=== PATIENT | female | born 1985 | race Hispanic/Latino ===

== ENCOUNTER 2016-08-04 11:56 | Emergency (ER) | payer OTHER ==
[~2016-08-04] VITALS: Ht 147.3 cm; Wt 65.9 kg
[~2016-08-04 11:56] MED LIST: DOCU-41 PO; EPIN0.3P2 IJ; FERR-74 PO; IBUP800T28 PO; NADO80TA PO; OXYC1TAB24 PO; PREN-148 PO
[2016-08-04 12:01] VITALS: BP 105/62; PULSE 74; RESP 20; O2SAT 98
[2016-08-04 13:09] LABS: BASOPHILS % (AUTO) 0.2 % (0-3); EOSINOPHILS % (AUTO) 0 % (0-5); MONOCYTES % (AUTO) 8.5 % (4-12); Mean Corpuscular Hemoglobin 30.4 pg (27.0-35.0); Mean Corpuscular Volume 95.2 fL (81-100); Platelet Count 273 bil/L (150-400)
--- NOTE | 2016-08-04 13:24 | ED.REPORT ---
HPI-Abd Pain F Under 39 Date of Service Aug 04, 2016 ED Provider: Jazmin Giles History of Present Illness: epigastric pain since last night. has been ongoing for a while. scheduled to work today in [employer], does different things every day. did not go to work. 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 yund is primary care, missed ultrasound appointment, nausea with the pain Nursing Notes Stated Complaint: ABDOMINAL PAIN Chief Complaint: Female Abdominal Pain Nursing Notes Reviewed: Yes Allergies: Coded Allergies: metoclopramide HCl (Verified Allergy, Severe, ANXIETY, ITCHING, SOB, ) Informed of reaction after med had been given today. Pt. anxious when she came, remains anxious, not noticably worse at this time. Offered phenergan, which she refused. iodine (Verified Allergy, Mild, RASH, 04/02/16) SINGLE EPISODE OF RASH WITH IV CONTRAST Uncoded Allergies: STERIOIDS (Allergy, Intermediate, Anxiety, 02/04/15) Scheduled Docusate Sodium (Colace) 100 Mg Capsule 100 MG PO BID Ferrous Sulfate (Feosol) 325 Mg Tablet 325 MG PO BIDWM Nadolol (Nadolol) 80 Mg Tablet 80 MG PO DAILY Vit No.124/Iron/FA ( Vitamin Tablet) 27 Mg Iron-800 Mcg Tablet 1 EACH PO DAILY Scheduled PRN Epinephrine (Epipen 2-Joshua) 0.3 Mg/0.3 Ml Auto.injct 0.3 MG IJ DIRECTED PRN PRN For Anaphyllaxis Ibuprofen (Ibuprofen) 800 Mg Tablet 800 MG PO Q6H PRN PRN For Pain oxyCODONE-Acetaminophen 5-325 mg (oxyCODONE-Acetaminophen 5-325 mg) 1 Each Tablet 1 TAB PO Q4H PRN PRN For Pain General Time Seen by MD: 13:21 Chief Complaint Abdominal pain Hx Obtained From: Patient Sudden in Onset?: No Past Medical History Past Medical History Notes: Six pregnancies last CT and U/S 12/2014 A1 Blood type O+ No history of ectopic or STI. Past Medical History migraines Chronic Abdominal Pain - unclear etiology H/O H. Pylori PE Asthma Past Surgical History EGD neg 11/2012 Reports: Appendectomy, Cholecystectomy Family History Non-contributory Smoking History Never Smoker Social History Alcohol Use: Denies alcohol use Drug Use: Denies drug use Other Social History: Lives with children, Local resident Occupation single mom, has family help 08/04/2016 Ambulatory Status Independent Review of Systems Basic Review of Systems Eyes: Vision NL, No discharge ENT: Hearing NL, No pain, No nasal congestion, No pharyngeal pain Hematologic: No bleeding, No bruising Endocrine: No cold intolerance, No heat intolerance, No weight gain, No weight loss Skin: No bruising, No rash, No itch Allergy / Immune: No allergy Neurologic: NL mental status, No weakness, No numbness Psychiatric: Normal thought content Physical Exam Initial Vital Signs Vital Signs (First) Date Time Temp Pulse Resp B/P Pulse Ox O2 Delivery O2 Flow Rate FiO2 08/04/16 12:01 36.4 74 20 105/62 98 Room Air Initial VS: Reviewed, Vital signs normal Head / Eyes: Atraumatic, Normocephalic, PERRL ENT: Mucous membranes moist, Conjunctiva normal, No scleral icterus Neck: Supple, Non-tender, Full range of motion Lymphatic: No lymphadenopathy Extremities: Vascular intact, Neuro intact, No swelling, No tenderness Skin: Warm, Dry, No cyanosis Neurologic: Alert, Oriented, Nonfocal Psychiatric: Mood/affect normal, Behavior normal, Normal thought content General/Constitutional: Awake, Alert, No acute distress, Well appearing, Well developed, Well hydrated Respiratory / Chest: Atraumatic, Breath sounds NL, Breath sounds = bilat, No respiratory distress Cardiovascular: Heart rate NL, Regular rhythm, Heart sounds NL, No gallop Abdomen: Atraumatic, Soft, Non-tender, McBurney's non-tender, No guarding, No rebound, BS normoactive Back: Atraumatic, Inspection NL, Full range of motion, Painless range of motion Interpretation & Diagnostics Lab Results Interpretation Result Diagram: 08/04/16 1235 08/04/16 1235 Test 08/04/16 12:35 08/04/16 13:40 White Blood Count 5.3th/mm3 (3.8-10.1) Red Blood Count 3.75mil/mm3 (3.90-5.20) Hemoglobin 11.4g/dL (12.0-15.6) Hematocrit 35.7% (35.0-46.0) Mean Corpuscular Volume 95.2fL (81-100) Mean Corpuscular Hemoglobin 30.4pg (27.0-35.0) Mean Corpuscular Hemoglobin Concent 31.9% (32.0-37.0) Red Cell Distribution Width 13.8% (12.3-15.4) Platelet Count 273bil/L (150-400) Neutrophils (%) (Auto) 52.0% (40-74) Lymphocytes (%) (Auto) 39.1% (14-46) Monocytes (%) (Auto) 8.5% (4-12) Eosinophils (%) (Auto) 0% (0-5) Basophils (%) (Auto) 0.2% (0-3) Sodium Level 139mEq/L (134-144) Potassium Level 4.2mEq/L (3.5-5.2) Chloride Level 106mEq/L (97-108) Carbon Dioxide Level 22mmol/L (18-29) Blood Urea Nitrogen 18mg/dL (6-20) Creatinine 0.73mg/dL (0.57-1.00) Estimat Glomerular Filtration Rate 132mL/min (>59) Glucose Level 73mg/dL (60-99) Calcium Level 8.4mg/dL (8.5-10.1) Magnesium Level 1.8mg/dL (1.6-2.6) Total Bilirubin 0.2mg/dL (0.0-1.2) Aspartate Amino Transf (AST/SGOT) 18U/L (0-50) Alanine Aminotransferase (ALT/SGPT) 23U/L (0-32) Alkaline Phosphatase 53U/L (25-150) Total Protein 7.4g/dL (6.4-8.4) Albumin 3.9g/dL (3.4-5.0) Lipase 33U/L (13-60) Hold [place] Top Tube Received (Received) Urine Color Yellow (YELLOW) Urine Appearance Hazy (CLEAR,HAZY) Urine pH 5.5 (5.0-8.0) Urine Specific [place] 1.025 (1.003-1.035) Urine Protein Negativemg/dL (NEG,TRACE) Urine Glucose (UA) Negativemg/dL (NEGATIVE) Urine Ketones Negativemg/dL (NEGATIVE) Urine Occult Blood Negative (NEGATIVE) Urine Nitrite Negative (NEGATIVE) Urine Bilirubin Negative (NEGATIVE) Urine Urobilinogen Normalmg/dL (NORMAL) Urine Leukocyte Esterase Negative (NEGATIVE) Urine RBC 0-2/hpf (0-2) Urine WBC 0-5/hpf (0-5) Urine Epithelial Cells None/hpf (NONE-MOD) Urine Crystals None seen (NONE SEEN) Urine Bacteria Few/hpf (NONE-FEW) Urine Hyaline Casts None/lpf (NONE) Urine Granular Casts None seen (NONE SEEN) Urine Waxy Casts None seen (NONE SEEN) Urine Red Blood Cell Casts None seen (NONE SEEN) Urine White Blood Cell Casts None seen (NONE SEEN) Urine Mucus Present (None Seen) Urine Trichomonas None seen (NONE SEEN) Urine Yeast None (NONE SEEN) Urinalysis Comment None Urine Culture Reflexed Not indicated Hold Urine Received (Received) US Focused Biliary Liver: Liver is normal in size and homogeneous in echotexture. Gallbladder: Surgically absent. Biliary ducts: Intrahepatic bile ducts are non-dilated. Extrahepatic bile duct caliber measures 7 mm. Normal is 6-7 mm or less in diameter, or 10 mm or less post-cholecystectomy. Pancreas: Visualized portions of the pancreas are sonographically normal. Spleen: Spleen is normal in size and homogeneous in echotexture. Kidneys: Kidneys are normal in size and echotexture. Right kidney measures 10.1 cm long; left kidney measures 10.1 cm long. No hydronephrosis or nephrolithiasis. No solid masses. Aorta: Visualized aorta is normal in caliber at less than 3 cm. Iliacs: Proximal common iliac arteries are normal in caliber at less than 2.5 cm. IVC: Intrahepatic inferior vena cava is patent. Miscellaneous: No free abdominal fluid. IMPRESSION: No sonographic explanation for abdominal pain, status post remote cholecystectomy. Dictated by: Adryan Diane M.D. on 08/04/2016 at 14:46 Discharge & Departure Primary Impression: Abdominal pain Abdominal location: left upper quadrant Qualified Code: R10.12 - Left upper quadrant pain Disposition: Home Patient Instructions: Acute Abdominal Pain (ED) Additional Instructions: Your labs are looking good. The ultrasound does not identify any abnormalities. Your gall bladder has been removed about 15 years ago. With the history of the pain waking you around 2 or 3 in the morning it may be a ulcer. Start omeprazole daily also carafate 4 times a day. You will need a follow up with primary care to see if these medications are working. Can also use hydrocodone 1 at night for severe unrelenting pain. Referrals: Joaquim Flores MD (PCP/Family) EDSupervising Provider for APC: Niko Basilio DO copies to: Joaquim Flores MD, Sue ARNP Aug 04, 2016 13:24
[2016-08-04] MEDS ORDERED: Ketorolac 30 mg/mL 2 mL Inj IM ONE (13:35)
[2016-08-04 13:39] LABS: Magnesium 1.8 mg/dL (1.6-2.6)
[2016-08-04 14:36] LABS: APPEARANCE,URINE HAZY (CLEAR,HAZY); COLOR,URINE YELLOW (YELLOW); OCCULT BLOOD,URINE NEGATIVE (NEGATIVE); PH,URINE 5.5 (5.0-8.0); UROBILINOGEN,URINE NORMAL (NORMAL)
--- NOTE | 2016-08-04 14:47 | DRSVH ---
PROCEDURE: US ABDOMEN ([id number]) INDICATIONS: 31 year-old female with epigastric abdominal pain. TECHNIQUE: Real-time scanning was performed of the abdominal and retroperitoneal organs, with image documentatio n. COMPARISON: [facility], CT, CT ABD PELVIS WO CON, 04/02/2016, 18:32. [facility] joy, US, ABDOMEN SONOGRAM, 12/01/2014, 18:55. FINDINGS: Liver: Liver is normal in size and homogeneous in echotexture. Gallbladder: Surgically absent. Biliary ducts: Intrahepatic bile ducts are non-dilated. Extrahepatic bile duct caliber measures 7 m m. Normal is 6-7 mm or less in diameter, or 10 mm or less post-cholecystectomy. Pancreas: Visualized portions of the pancreas are sonographically normal. Spleen: Spleen is normal in size and homogeneous in echotexture. Kidneys: Kidneys are normal in size and echotexture. Right kidney measures 10.1 cm long; left kidne y measures 10.1 cm long. No hydronephrosis or nephrolithiasis. No solid masses. Aorta: Visualized aorta is normal in caliber at less than 3 cm. Iliacs: Proximal common iliac arteries are normal in caliber at less than 2.5 cm. IVC: Intrahepatic inferior vena cava is patent. Miscellaneous: No free abdominal fluid. IMPRESSION: No sonographic explanation for abdominal pain, status post remote cholecystectomy. Dictated by: Adryan Diane M.D. on 08/04/2016 at 14:46 Approved by: Adryan Diane M.D. on 08/04/2016 at 14:46
== END 2016-08-04 14:39 | disposition home or self-care (01) ==
LOC: SED 11:56
DX: R10.12 Left upper quadrant pain (principal); Z88.8 Allergy status to other drugs, medicaments and biological substances
CPT/HCPCS: 76700; 80053; 81000; 81025; 83690; 83735; 85025; 96372; 99285; J1885

== ENCOUNTER 2016-08-06 03:59 | Emergency (ER) | payer OTHER ==
[~2016-08-06] VITALS: Ht 147.3 cm; Wt 61.4 kg
[2016-08-06 04:07] VITALS: BP 107/62; PULSE 105; RESP 22; O2SAT 98
--- NOTE | 2016-08-06 04:11 | ED.REPORT ---
HPI-Abd Pain F Under 40 Date of Service Aug 06, 2016 ED Provider: Dr. Cesario Mcduffie M.D. A 31 year old female with a history of PE, chronic abdominal pain, kidney stones , and asthma presents to the ED with abdominal pain onset three days ago. The patient also reports fever and nausea. She denies vomiting, diarrhea, or constipation. The patient was in the ED two days ago (08/04/16) with similar symptoms. Nursing Notes Stated Complaint: ABDOMINAL PAIN & FEVER Chief Complaint: Female Abdominal Pain Nursing Notes Reviewed: Yes Allergies: Coded Allergies: metoclopramide HCl (Verified Allergy, Severe, ANXIETY, ITCHING, SOB, ) Informed of reaction after med had been given today. Pt. anxious when she came, remains anxious, not noticably worse at this time. Offered phenergan, which she refused. iodine (Verified Allergy, Mild, RASH, 04/02/16) SINGLE EPISODE OF RASH WITH IV CONTRAST Uncoded Allergies: STERIOIDS (Allergy, Intermediate, Anxiety, 02/04/15) Scheduled Docusate Sodium (Colace) 100 Mg Capsule 100 MG PO BID Ferrous Sulfate (Feosol) 325 Mg Tablet 325 MG PO BIDWM Nadolol (Nadolol) 80 Mg Tablet 80 MG PO DAILY Omeprazole (Omeprazole) 20 Mg Tablet.dr 20 MG PO BID Vit No.124/Iron/FA ( Vitamin Tablet) 27 Mg Iron-800 Mcg Tablet 1 EACH PO DAILY Scheduled PRN Epinephrine (Epipen 2-Joshua) 0.3 Mg/0.3 Ml Auto.injct 0.3 MG IJ DIRECTED PRN PRN For Anaphyllaxis Ibuprofen (Ibuprofen) 800 Mg Tablet 800 MG PO Q6H PRN PRN For Pain oxyCODONE-Acetaminophen 5-325 mg (oxyCODONE-Acetaminophen 5-325 mg) 1 Each Tablet 1 TAB PO Q4H PRN PRN For Pain General Time Seen by MD: 04:10 Chief Complaint Abdominal pain Hx Obtained From: Patient Arrived By: Walk-in Sudden in Onset?: No Onset Occurred: 3 days ago Symptom Duration: Since onset Location: : Diffuse Quality: Painful Severity: Current: Moderate Severity: Maximum: Moderate Associated with: Reports: Fever, Nausea, Denies: Diarrhea, Vomiting Pertinent Negative: Relieved by nothing Context Related History: Reports: Abdominal surgery Recent Healthcare: Recent doctor visit, Prior workup Similar Sx Previous: Yes Past Medical History Past Medical History Notes: Six pregnancies last CT and U/S 12/2014 A1 Blood type O+ No history of ectopic or STI. Past Medical History migraines Chronic Abdominal Pain - unclear etiology H/O H. 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 Physical Exam Initial Vital Signs Vital Signs (First) Date Time Temp Pulse Resp B/P Pulse Ox O2 Delivery O2 Flow Rate FiO2 08/06/16 04:07 37.7 105 22 107/62 98 Room Air Initial VS: Reviewed Head / Eyes: Atraumatic, Normocephalic ENT: Conjunctiva normal, No scleral icterus Neck: Supple, Full range of motion Skin: Warm, Dry, No cyanosis Neurologic: Alert, Oriented, Nonfocal Psychiatric: Mood/affect normal, Behavior normal, Normal thought content General/Constitutional: Awake, Alert Appearance / Presentation: Positive: Uncomfortable Respiratory / Chest: Breath sounds NL, Breath sounds = bilat, No respiratory distress Cardiovascular: Heart rate NL, Regular rhythm, Heart sounds NL Abdomen: Soft Tenderness/Guarding/Rebound: Positive: Tender epigastric Interpretation & Diagnostics Lab Results Interpretation Result Diagram: 08/06/16 0420 08/06/16 0420 Test 08/06/16 04:20 08/06/16 05:30 White Blood Count 9.0th/mm3 (3.8-10.1) Red Blood Count 4.02mil/mm3 (3.90-5.20) Hemoglobin 12.3g/dL (12.0-15.6) Hematocrit 37.8% (35.0-46.0) Mean Corpuscular Volume 94.0fL (81-100) Mean Corpuscular Hemoglobin 30.6pg (27.0-35.0) Mean Corpuscular Hemoglobin Concent 32.5% (32.0-37.0) Red Cell Distribution Width 13.9% (12.3-15.4) Platelet Count 249bil/L (150-400) Neutrophils (%) (Auto) 80.7% (40-74) Lymphocytes (%) (Auto) 5.9% (14-46) Monocytes (%) (Auto) 13.1% (4-12) Eosinophils (%) (Auto) 0% (0-5) Basophils (%) (Auto) 0.1% (0-3) Hold Purple Top Tube Received (Received) Prothrombin Time 10.0sec (8.1-12.5) Prothromb Time International Ratio 0.94ratio Hold Blue Top Tube Received (Received) Urine Color Straw (YELLOW) Urine Appearance Clear (CLEAR,HAZY) Urine pH 6.0 (5.0-8.0) Urine Specific [place] 1.025 (1.003-1.035) Urine Protein Negativemg/dL (NEG,TRACE) Urine Glucose (UA) Negativemg/dL (NEGATIVE) Urine Ketones Negativemg/dL (NEGATIVE) Urine Occult Blood Negative (NEGATIVE) Urine Nitrite Negative (NEGATIVE) Urine Bilirubin Negative (NEGATIVE) Urine Urobilinogen Normalmg/dL (NORMAL) Urine Leukocyte Esterase Negative (NEGATIVE) Urine RBC 0-2/hpf (0-2) Urine WBC 0-5/hpf (0-5) Urine Epithelial Cells Occasional/hpf (NONE-MOD) Urine Crystals None seen (NONE SEEN) Urine Bacteria None/hpf (NONE-FEW) Urine Hyaline Casts None/lpf (NONE) Urine Granular Casts None seen (NONE SEEN) Urine Waxy Casts None seen (NONE SEEN) Urine Red Blood Cell Casts None seen (NONE SEEN) Urine White Blood Cell Casts None seen (NONE SEEN) Urine Mucus Present (None Seen) Urine Trichomonas None seen (NONE SEEN) Urine Yeast None (NONE SEEN) Urine Culture Reflexed Not indicated Hold Urine Received (Received) Sodium Level 140mEq/L (134-144) Potassium Level 3.7mEq/L (3.5-5.2) Chloride Level 102mEq/L (97-108) Carbon Dioxide Level 24mmol/L (18-29) Blood Urea Nitrogen 15mg/dL (6-20) Creatinine 0.61mg/dL (0.57-1.00) Estimat Glomerular Filtration Rate 163mL/min (>59) Glucose Level 95mg/dL (60-99) Calcium Level 9.1mg/dL (8.5-10.1) Magnesium Level 1.8mg/dL (1.6-2.6) Total Bilirubin 0.2mg/dL (0.0-1.2) Aspartate Amino Transf (AST/SGOT) 19U/L (0-50) Alanine Aminotransferase (ALT/SGPT) 19U/L (0-32) Alkaline Phosphatase 60U/L (25-150) Total Protein 8.3g/dL (6.4-8.4) Albumin 4.4g/dL (3.4-5.0) Lipase 33U/L (13-60) Hold [place] Top Tube Received (Received) Lactic Acid Level 1.2mmol/L (0.4-2.0) Re-Eval/Medical Decision Med Decision/Clinical Course Med Decision/Clinical Course: 31-year-old presents again with epigastric pain radiating through her back. Just had an ultrasound but is postcholecystectomy in any case. Improved here with Maalox and Viscous Xylocaine. Omeprazole previously prescribed now doubled to twice daily. Ten pack of Vicodin given with no renewal. Follow-up with PCP. Source of Hx: Old records Re-Evaluation/Progress : Time of Eval: 06:03 Patient Status: Condition improved Re-Evaluation/Progress Note: Discussed with patient lab results, diagnosis, and plan for discharge. Follow-up and return to the ER instructions given. Patient agrees with plan for care and all questions were addressed. Counseled Regarding: Diagnosis, Lab results, Need for follow-up, When/why to return to ED Discharge & Departure Primary Impression: Abdominal Pain, Epigastric Additional Impression: Gastritis Disposition: Home Discharge Condition All VS Reviewed: Yes Condition: Stable Patient Instructions: Gastritis (ED) Additional Instructions: Use Maalox as needed for acute episodes. Double up your omeprazole to 20 mg twice daily.\ Avoid acid caffeine alcohol and spicy foods. Vicodin sparingly at night for pain. These cannot be renewed through the emergency department and can only be renewed by her primary care doctor, if appropriate. Return if you seen any blood in her stool, black stool, vomit any significant amount of blood, or have any new symptoms of concern. Referrals: Joaquim Flores MD (PCP/Family) [facility] Attestation Portions of this note were transcribed by Saima José. I, Dr. Mcduffie, personally performed the history, physical exam, and medical decision-making; I reviewed and confirmed the accuracy of the information in the transcribed note. Signed by: Tracy Garcia, 08/06/2016, 06:14 copies to: Joaquim Flores MD, Christopher W MD Aug 06, 2016 04:11 SAIMA JOSÉ Aug 06, 2016 04:18
[2016-08-06] MEDS ORDERED: 0.9% Sodium Chloride 1,000 ML IV ONE (05:04)
[2016-08-06] MEDS ORDERED: Ondansetron 2 mg/mL 2 mL Inj IVPUSH ONE (05:05)
[2016-08-06] MEDS ORDERED: Pantoprazole 4 mg/mL 10 mL Inj IVPUSH ONE (05:05)
[2016-08-06] MEDS: HYDROmorphone 0.5 mg/0.5 mL iSecure Syringe IVPUSH PRN ×2 (05:13→05:36)
[2016-08-06 05:14] LABS: BASOPHILS % (AUTO) 0.1 % (0-3); EOSINOPHILS % (AUTO) 0 % (0-5); MONOCYTES % (AUTO) 13.1 % (4-12); Mean Corpuscular Hemoglobin 30.6 pg (27.0-35.0); NEUTROPHILS % (AUTO) 80.7 % (40-74); Platelet Count 249 bil/L (150-400)
[2016-08-06 05:21] LABS: INR 0.94 ratio
[2016-08-06 05:25] LABS: Magnesium 1.8 mg/dL (1.6-2.6)
[2016-08-06 05:29] LABS: APPEARANCE,URINE CLEAR (CLEAR,HAZY); COLOR,URINE STRAW (YELLOW); OCCULT BLOOD,URINE NEGATIVE (NEGATIVE); UROBILINOGEN,URINE NORMAL (NORMAL)
[2016-08-06] MEDS ORDERED: Alum-Mag Hydrox-Simeth 30 mL Suspension PO ONE (06:10)
[2016-08-06] MEDS ORDERED: _HYDROcodone/APAP 5-325 mg Tablet PO PRN (06:10)
[2016-08-06] MEDS ORDERED: OMEP20TA86 PO (06:11)
[2016-08-06 06:28] VITALS: BP 99/62; PULSE 107; RESP 16; O2SAT 97
== END 2016-08-06 06:29 | disposition home or self-care (01) ==
LOC: SED 03:59
DX: R10.13 Epigastric pain (principal); K29.70 Gastritis, unspecified, without bleeding; R50.9 Fever, unspecified; R11.0 Nausea; J45.909 Unspecified asthma, uncomplicated; Z86.711 Personal history of pulmonary embolism; Z88.8 Allergy status to other drugs, medicaments and biological substances
CPT/HCPCS: 36415; 80053; 81000; 81025; 83605; 83690; 83735; 85025; 85610; 96361; 96374; 96375; 99285; J1170; J2405; J7030

== ENCOUNTER 2017-02-11 17:25 | Emergency (ER) | payer OTHER ==
[~2017-02-11] VITALS: Ht 147.3 cm; Wt 63.6 kg
[~2017-02-11 17:25] MED LIST changes: +OMEP20TA86 PO
[2017-02-11 17:47] VITALS: BP 120/81; PULSE 71; RESP 16; O2SAT 100
--- NOTE | 2017-02-11 18:06 | ED.REPORT ---
HPI-Trauma Minor / Fall Date of Service Feb 11, 2017 ED Provider: Manny Whitmore MD Pt is a generally healthy 32 y/o female presenting to the ED due to head injury which occurred today. 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 She c/o associated headache, neck pain, nausea, ear pain. She denies change in LOC, vomiting, abdominal pain, chest pain , extremity pain. She has a history of tubal ligation. Nursing Notes Stated Complaint: FELL AT WORK, HURT MY HEAD Chief Complaint: Head, Face, Neck Trauma Nursing Notes Reviewed: Yes Allergies: Coded Allergies: metoclopramide HCl (Verified Allergy, Severe, ANXIETY, ITCHING, SOB, ) Informed of reaction after med had been given today. Pt. anxious when she came, remains anxious, not noticably worse at this time. Offered phenergan, which she refused. iodine (Verified Allergy, Mild, RASH, 02/11/17) SINGLE EPISODE OF RASH WITH IV CONTRAST Uncoded Allergies: STERIOIDS (Allergy, Intermediate, Anxiety, 02/04/15) Scheduled Docusate Sodium (Colace) 100 Mg Capsule 100 MG PO BID Ferrous Sulfate (Feosol) 325 Mg Tablet 325 MG PO BIDWM Nadolol (Nadolol) 80 Mg Tablet 80 MG PO DAILY Omeprazole (Omeprazole) 20 Mg Tablet.dr 20 MG PO BID Vit No.124/Iron/FA ( Vitamin Tablet) 27 Mg Iron-800 Mcg Tablet 1 EACH PO DAILY Scheduled PRN Epinephrine (Epipen 2-Joshua) 0.3 Mg/0.3 Ml Auto.injct 0.3 MG IJ DIRECTED PRN PRN For Anaphyllaxis Ibuprofen (Ibuprofen) 800 Mg Tablet 800 MG PO Q6H PRN PRN For Pain oxyCODONE-Acetaminophen 5-325 mg (oxyCODONE-Acetaminophen 5-325 mg) 1 Each Tablet 1 TAB PO Q4H PRN PRN For Pain General Time Seen by MD: 17:55 Chief Complaint Head injury Hx Obtained From: Patient Arrived By: Walk-in Onset Occurred: 1 - 4 hours ago Symptom Duration: Since onset Location: Head Quality: Aching Severity: Current: Moderate Severity: Maximum: Moderate Similar Sx Previous: No Past Medical History Past Medical History Notes: Six pregnancies last CT and U/S 12/2014 A1 Blood type O+ No history of ectopic or STI. Past Medical History migraines Chronic Abdominal Pain - unclear etiology H/O H. 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 Physical Exam Initial Vital Signs Vital Signs (First) Date Time Temp Pulse Resp B/P Pulse Ox O2 Delivery O2 Flow Rate FiO2 02/11/17 17:47 36.6 71 16 120/81 100 Room Air Initial VS: Reviewed, Vital signs normal ENT: Mucous membranes moist, Conjunctiva normal, No scleral icterus Respiratory: Breath sounds normal, Clear to auscultation, No respiratory distress Cardiovascular: Regular rate & rhythm, Heart sounds normal, Intact distal pulses Abdomen / GI: Soft, Non-tender, No distention Extremities: Vascular intact, Neuro intact, No swelling, No tenderness Skin: Warm, Dry, No cyanosis Neurologic: Alert, Oriented, Nonfocal Psychiatric: Mood/affect normal, Behavior normal, Normal thought content General/Constitutional: Awake, Alert, No acute distress, Cooperative, Not toxic appearing Neck: Atraumatic Trauma - Neck Specific: Positive: Immobilized - C Collar Diffuse mild tenderness about the neck Head / Eyes: Normocephalic, PERRL Tenderness about R occipital scalp No step-offs No deformity No hematoma Back: Atraumatic, No midline vertebral tend R lumbar paraspinal tenderness Interpretation & Diagnostics CT Head Interpretation IMPRESSION: No acute intracranial process Dictated by: Ammon Rizzo M.D. on 02/11/2017 at 19:37 Approved by: Ammon Rizzo M.D. on 02/11/2017 at 19:38 Study: Head CT no contrast Interpretation / Wet Read by: Interpret - Radiologist CT C-Spine Interpretation IMPRESSION: No fracture Dictated by: Ammon Rizzo M.D. on 02/11/2017 at 19:38 Approved by: Ammon Rizzo M.D. on 02/11/2017 at 19:49 Study type: CT no contrast Interpretation / Wet Read by: Interpret - Radiologist Re-Eval/Medical Decision Med Decision/Clinical Course Patient is a generally healthy 32-year-old female with a history of tubal ligation who presents to the emergency department after falling and striking her head. She is complaining of head and neck pain. She arrives in a cervical collar. CT scan of the head and cervical spine was obtained demonstrated no acute intracranial hemorrhage or cervical spine fracture. The patient remained stable and in no apparent distress. She had no distracting injuries and her cervical spine was clinically cleared. She will take Tylenol for pain and apply ice packs and hot packs. One dose of Tylenol administered here in emergency room. Full head to toe survey reveals no other evidence of traumatic injury. I feel that she is appropriate for discharge. Prior to discharge follow-up and return precautions were reviewed in detail with the patient who verbalized understanding and agreement with the plan. The patient was discharged in stable condition. Re-Evaluation/Progress : Time of Eval: 20:05 Patient Status: Condition improved, Moderate relief, Pain improved Re-Evaluation/Progress Note: Pt rechecked. Informed pt of plan for treatment. Pt understands and agrees with plan for treatment. F/U instructions and RTER warnings given. All questions addressed. Counseled Regarding: Diagnosis, Need for follow-up, When/why to return to ED Discharge & Departure Impression: Primary Impression: Head pain Headache type: unspecified Headache chronicity pattern: acute headache Intractability: not intractable Qualified Code: R51 - Headache Additional Impressions: Head trauma Encounter type: initial encounter Qualified Code: S09.90XA - Unspecified injury of head, initial encounter Neck pain Fall Encounter type: initial encounter Qualified Code: W19.XXXA - Unspecified fall, initial encounter Disposition: Home Discharge Condition All VS Reviewed: Yes Condition: Stable Patient Instructions: Head Injury (ED) Additional Instructions: Thank you for seeking care at the emergency room. Our primary goal today in the ED was to evaluate you for any life-threatening conditions. Your evaluation was reassuring. You may take [id number] Tylenol and apply ice packs for pain. You should follow-up with your primary doctor in the next week. You should return to the ED immediately if you develop increasing headache, neck pain, fevers, vomiting, cough, shortness of breath, chest pain, lightheadedness, weakness or any other concerning signs or symptoms. Thank you for letting us partake in your care today. Referrals: Joaquim Flores MD (PCP/Family) Scribe Attestation Portions of this note were transcribed by Sergo Mcgee. I, Dr. Whitmore personally performed the history, physical exam and medical decision-making; I reviewed and confirmed the accuracy of the information in the transcribed note. Signed by Tracy Gann, 02/11/17 [id number] copies to: Joaquim Flores MD, Beck O MD Feb 11, 2017 18:06 SERGO MCGEE Feb 11, 2017 18:12 SERGO MCGEE Feb 11, 2017 18:12
--- NOTE | 2017-02-11 19:40 | DRSVH ---
PROCEDURE: CT BRAIN WITHOUT CONTRAST ([id number]) INDICATIONS: trauma TECHNIQUE: Noncontrast 4.5 mm thick angled axial sections acquired from the foramen magnum to the vertex, with c oronal reformats. COMPARISON: [facility], CT, BRAIN W/O CONTRAST, 11/21/2008, 5:07. FINDINGS: Image quality: Excellent. CSF spaces: Basal cisterns are patent. No extra-axial fluid collections. Ventricles are normal in size and shape. Brain: No midline shift. No intracranial masses or hemorrhage. Degroot-white matter interface is norm al. Skull and face: Calvarium and visualized facial bones are intact, without suspicious lesions. Sinuses: Visualized sinuses and mastoids are clear. IMPRESSION: No acute intracranial process Dictated by: Ammon Rizzo M.D. on 02/11/2017 at 19:37 Approved by: Ammon Rizzo M.D. on 02/11/2017 at 19:38
--- NOTE | 2017-02-11 19:51 | DRSVH ---
PROCEDURE: CT CERVICAL SPINE WITHOUT CONTRAST ([id number]) INDICATIONS: trauma TECHNIQUE: Noncontrast 3 mm thick sections acquired from the skull base to the T4 level. Sagittal and coronal r eformats were then constructed. For radiation dose reduction, the following was used: automated exp osure control, adjustment of mA and/or kV according to patient size. COMPARISON: None. FINDINGS: Image quality: Excellent. Bones: No fractures or dislocations. Chronic osseous fusion of the C2 and C3 vertebral bodies Visua lized superior ribs are intact. Lateral curvature of the cervical spine Soft tissues: Prevertebral soft tissues are normal in thickness. No paravertebral hematomas. No ap ical pneumothoraces. IMPRESSION: No fracture Dictated by: Ammon Rizzo M.D. on 02/11/2017 at 19:38 Approved by: Ammon Rizzo M.D. on 02/11/2017 at 19:49
[2017-02-11 20:14] VITALS: BP 106/73; PULSE 78; RESP 16; O2SAT 97
== END 2017-02-11 20:15 | disposition home or self-care (01) ==
LOC: SED 17:25
DX: S09.8XXA Other specified injuries of head, initial encounter (principal); W17.89XA Other fall from one level to another, initial encounter; Y93.89 Activity, other specified; Y92.69 Other specified industrial and construction area as the place of occurrence of the external cause; Y99.0 Civilian activity done for income or pay; M54.2 Cervicalgia; R11.0 Nausea; H92.09 Otalgia, unspecified ear; J45.909 Unspecified asthma, uncomplicated; G43.909 Migraine, unspecified, not intractable, without status migrainosus; Z87.442 Personal history of urinary calculi; Z88.8 Allergy status to other drugs, medicaments and biological substances

== ENCOUNTER 2017-02-19 13:19 | Emergency (ER) | payer OTHER ==
[~2017-02-19] VITALS: Ht 147.3 cm; Wt 65.9 kg
[2017-02-19 13:29] VITALS: BP 107/70; PULSE 66; RESP 12; O2SAT 99
--- NOTE | 2017-02-19 13:56 | ED.REPORT ---
HPI-Headache Date of Service Feb 19, 2017 ED Provider: Siria Connors History of Present Illness: 32-year-old female here for migraine right-sided x 4-5 days. She has a history of similar migraines. Last was 2 months ago. She has taken Maxalt and Imitrex alternating every day. 3 days ago Imitrex seemed to help the migraine came back. She has been taking nadolol for prevention for about a month. This is not the most severe headache of her life. She is vomiting. A few floaters in her right eye which is consistent with her migraines. No recent head trauma. Nursing Notes Stated Complaint: MIGRAINE Chief Complaint: Headache Nursing Notes Reviewed: Yes Allergies: Coded Allergies: metoclopramide HCl (Verified Allergy, Severe, ANXIETY, ITCHING, SOB, ) Informed of reaction after med had been given today. Pt. anxious when she came, remains anxious, not noticably worse at this time. Offered phenergan, which she refused. iodine (Verified Allergy, Mild, RASH, 02/11/17) SINGLE EPISODE OF RASH WITH IV CONTRAST Uncoded Allergies: STERIOIDS (Allergy, Intermediate, Anxiety, 02/04/15) Scheduled Docusate Sodium (Colace) 100 Mg Capsule 100 MG PO BID Ferrous Sulfate (Feosol) 325 Mg Tablet 325 MG PO BIDWM Nadolol (Nadolol) 80 Mg Tablet 80 MG PO DAILY Omeprazole (Omeprazole) 20 Mg Tablet.dr 20 MG PO BID Vit No.124/Iron/FA ( Vitamin Tablet) 27 Mg Iron-800 Mcg Tablet 1 EACH PO DAILY Scheduled PRN Epinephrine (Epipen 2-Joshua) 0.3 Mg/0.3 Ml Auto.injct 0.3 MG IJ DIRECTED PRN PRN For Anaphyllaxis Ibuprofen (Ibuprofen) 800 Mg Tablet 800 MG PO Q6H PRN PRN For Pain oxyCODONE-Acetaminophen 5-325 mg (oxyCODONE-Acetaminophen 5-325 mg) 1 Each Tablet 1 TAB PO Q4H PRN PRN For Pain General Time Seen by MD: 13:53 Chief Complaint Headache, Migraine headache Hx Obtained From: Patient Arrived By: Walk-in Sudden in Onset?: No Onset Occurred: 4 days ago Symptom Duration: Constant Location: : Frontal right: Occipital right Quality: Pressure, Throbbing Severity: Current: Severe Severity: Maximum: Severe Recent Healthcare: Recent doctor visit Similar Sx Previous: Yes Past Medical History Past Medical History Notes: Six pregnancies last CT and U/S 12/2014 A1 Blood type O+ No history of ectopic or STI. Past Medical History migraines Chronic Abdominal Pain - unclear etiology H/O H. 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, has family help 08/04/2016 Ambulatory Status Independent Review of Systems Review of Systems Note: headache, floaters R eye, vomiting Physical Exam Initial Vital Signs Vital Signs (First) Date Time Temp Pulse Resp B/P Pulse Ox O2 Delivery O2 Flow Rate FiO2 02/19/17 13:29 37.0 66 12 107/70 99 Room Air Initial VS: Reviewed, Vital signs normal ENT: Mucous membranes moist, Conjunctiva normal, No scleral icterus Respiratory: Breath sounds normal, Clear to auscultation, No respiratory distress Cardiovascular: Regular rate & rhythm, Heart sounds normal, Intact distal pulses Abdomen / GI: Soft, Non-tender, No guarding, No rebound, No distention Extremities: Vascular intact, Neuro intact, No swelling, No tenderness Skin: Warm, Dry, No cyanosis Psychiatric: Mood/affect normal, Behavior normal, Normal thought content General/Constitutional: Awake, Alert Head / Eyes: Atraumatic, Normocephalic, PERRL, EOMI, No nystagmus, No periorbital redness, No periorbital swelling, No photophobia, No scleral icterus , Conjunctiva NL, Eyelids NL, Temporal arteries NL Neck: Supple, No meningismus, Full range of motion, No swelling, No masses FROM of neck Neurologic: Oriented X3, Speech NL, No motor deficits, No sensory deficits, CN II - XII intact, Cerebellar NL ENT: Airway patent, Mucous membranes moist, Pharynx NL, No sinus tenderness Respiratory / Chest: Breath sounds NL, Breath sounds = bilat, No respiratory distress, No rales, No rhonchi, No wheezing Cardiovascular: Heart rate NL, Regular rhythm, Heart sounds NL, Peripheral circulation NL Abdomen: Soft, Non-tender, No guarding, No rebound Skin: Color NL, No rash, Warm, Dry, Turgor NL Re-Eval/Medical Decision Med Decision/Clinical Course pain not much relieved by toradol, phenergan, benadryl. will order dilaudid After 1 mg Dilaudid patient still 7 out of 10, will order one more half milligram and have her follow-up with her PCP tomorrow Discharge & Departure Shift Change Sign-Out Procedures: Results discussed Impression: Primary Impression: Migraine Migraine type: unspecified Status migrainosus presence: without status migrainosus Intractability: not intractable Qualified Code: G43.909 - Migraine, unspecified, not intractable, without status migrainosus Discharge Condition All VS Reviewed: Yes Condition: Stable Patient Instructions: Migraine Headache (ED) Additional Instructions: Take your usual migraine medicines at home. Rest and plenty of fluids. Follow- up with your PCP tomorrow. Return here if headache is severe, you get fevers, you get altered mental status. Referrals: Joaquim Flores MD (PCP/Family) EDSupervising Provider for APC: Roger Moreno MD, Linnea K ARNP Feb 19, 2017 13:56
[2017-02-19] MEDS ORDERED: 0.9% Sodium Chloride 1,000 ML IV ONE (14:10)
[2017-02-19] MEDS ORDERED: Promethazine Inj 25 MG in Dextrose 5%-Pha MIX 50 ML IV ONE (14:10)
[2017-02-19] MEDS ORDERED: HYDROmorphone 0.5 mg/0.5 mL iSecure Syringe IVPUSH ONE ×3 (15:50→17:25)
[2017-02-19 18:22] VITALS: BP 107/70; PULSE 66; RESP 12; O2SAT 99
== END 2017-02-19 18:20 | disposition home or self-care (01) ==
LOC: SED 13:19
DX: G43.909 Migraine, unspecified, not intractable, without status migrainosus (principal); J45.909 Unspecified asthma, uncomplicated; Z87.442 Personal history of urinary calculi; Z87.19 Personal history of other diseases of the digestive system; Z88.8 Allergy status to other drugs, medicaments and biological substances
CPT/HCPCS: 96361; 96374; 96375; 96376; 99284; J1170; J1200; J1885; J2550; J7030

== ENCOUNTER 2017-03-02 19:03 | Emergency (ER) | payer OTHER ==
[~2017-03-02] VITALS: Ht 147.3 cm; Wt 63.6 kg
[2017-03-02 19:06] VITALS: BP 128/85; PULSE 71; RESP 20; O2SAT 99
[2017-03-02 19:42] LABS: BASOPHILS % (AUTO) 0.1 % (0-3); EOSINOPHILS % (AUTO) 0 % (0-5); Mean Corpuscular Hemoglobin 33.2 pg (27.0-35.0); Mean Corpuscular Volume 99.2 fL (81-100); NEUTROPHILS % (AUTO) 51.9 % (40-74); Platelet Count 286 bil/L (150-400)
[2017-03-02 20:09] LABS: Magnesium 1.9 mg/dL (1.6-2.6)
--- NOTE | 2017-03-02 20:37 | ED.REPORT ---
HPI-Abd Pain F Under 39 Date of Service Mar 02, 2017 ED Provider: Nicholas Ruth MD A 32 year old female with a history of kidney stones, PE and chronic abdominal pain presents to the ED complaining of back pain. The pt began experiencing this pain two weeks ago and suspected that it may be due to her work. She rested for a week but the pain began to worsen, and is now radiating into the left side of her abdomen. The pt also admits to nausea but denies fever, vomiting, diarrhea, vaginal bleeding, vaginal discharge or weakness. She denies recent heavy lifting or exacerbation of the pain with movement. Nursing Notes Stated Complaint: ABDOMINAL & BACK PAIN Chief Complaint: Female Abdominal Pain Nursing Notes Reviewed: Yes Allergies: Coded Allergies: metoclopramide HCl (Verified Allergy, Severe, ANXIETY, ITCHING, SOB, ) Informed of reaction after med had been given today. Pt. anxious when she came, remains anxious, not noticably worse at this time. Offered phenergan, which she refused. iodine (Verified Allergy, Mild, RASH, 02/11/17) SINGLE EPISODE OF RASH WITH IV CONTRAST Uncoded Allergies: STERIOIDS (Allergy, Intermediate, Anxiety, 02/04/15) Scheduled Docusate Sodium (Colace) 100 Mg Capsule 100 MG PO BID Ferrous Sulfate (Feosol) 325 Mg Tablet 325 MG PO BIDWM Nadolol (Nadolol) 80 Mg Tablet 80 MG PO DAILY Omeprazole (Omeprazole) 20 Mg Tablet.dr 20 MG PO BID Vit No.124/Iron/FA ( Vitamin Tablet) 27 Mg Iron-800 Mcg Tablet 1 EACH PO DAILY Tamsulosin (Flomax) 0.4 Mg Capsule 0.4 MG PO DAILY Scheduled PRN Epinephrine (Epipen 2-Joshua) 0.3 Mg/0.3 Ml Auto.injct 0.3 MG IJ DIRECTED PRN PRN For Anaphyllaxis Ibuprofen (Ibuprofen) 800 Mg Tablet 800 MG PO Q6H PRN PRN For Pain oxyCODONE-Acetaminophen 5-325 mg (oxyCODONE-Acetaminophen 5-325 mg) 1 Each Tablet 1 TAB PO Q4H PRN PRN For Pain General Time Seen by MD: 20:23 Chief Complaint Other (Back pain) Hx Obtained From: Patient Arrived By: Walk-in Sudden in Onset?: No Onset Occurred: More than a week ago... Symptom Duration: Since onset Recent Healthcare: No recent hospitalization, Recent doctor visit Similar Sx Previous: No Past Medical History Past Medical History Notes: Six pregnancies last CT and U/S 12/2014 A1 Blood type O+ No history of ectopic or STI. Past Medical History migraines Chronic Abdominal Pain - unclear etiology H/O H. 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, has family help 08/04/2016 Ambulatory Status Independent Review of Systems Constitutional: Denies: Weakness - generalized Respiratory: Denies: Non-productive cough, Shortness of breath Cardiovascular: Denies: Chest pain GI: Reports: Abdominal pain, Nausea, Denies: Vomiting Female: Denies: Vaginal bleeding - abnl, Vaginal discharge Musculoskeletal: Reports: Back pain, Denies: Neck pain Complete sys rev & neg: except as marked. Skin: Denies Rash Physical Exam Initial Vital Signs Vital Signs (First) Date Time Temp Pulse Resp B/P Pulse Ox O2 Delivery O2 Flow Rate FiO2 03/02/17 19:06 36.8 71 20 128/85 99 Room Air Initial VS: Reviewed General/Constitutional: Awake, Alert Respiratory / Chest: Atraumatic, Breath sounds NL, Breath sounds = bilat, No respiratory distress Cardiovascular: Heart rate NL, Regular rhythm, Heart sounds NL Abdomen: Atraumatic, Soft, Non-tender Back: Atraumatic, Full range of motion, No CVA tenderness left lower back tenderness Head / Eyes: Atraumatic, Normocephalic, PERRL, EOMI ENT: Atraumatic, Airway patent, Mucous membranes moist Skin: Atraumatic, Color NL, No rash, Warm, Dry Neurologic: Oriented X3, Speech NL, No motor deficits, No sensory deficits Neck: Atraumatic, Supple, Full range of motion Upper Extremity / MS: Atraumatic, Full range of motion Lower Extremity / Pelvis / MS: Atraumatic, Full range of motion Psychiatric: Affect NL, Mood NL Interpretation & Diagnostics Lab Results Interpretation Result Diagram: 03/02/17 19303/02/171934 Test 03/02/17 19:35 03/02/17 20:33 03/02/17 21:19 White Blood Count 7.5th/mm3 (3.8-10.1) Red Blood Count 3.71mil/mm3 (3.90-5.20) Hemoglobin 12.3g/dL (12.0-15.6) Hematocrit 36.8% (35.0-46.0) Mean Corpuscular Volume 99.2fL (81-100) Mean Corpuscular Hemoglobin 33.2pg (27.0-35.0) Mean Corpuscular Hemoglobin Concent 33.4% (32.0-37.0) Red Cell Distribution Width 13.2% (12.3-15.4) Platelet Count 286bil/L (150-400) Neutrophils (%) (Auto) 51.9% (40-74) Lymphocytes (%) (Auto) 39.7% (14-46) Monocytes (%) (Auto) 8.0% (4-12) Eosinophils (%) (Auto) 0% (0-5) Basophils (%) (Auto) 0.1% (0-3) Sodium Level 139mEq/L (134-144) Potassium Level 3.6mEq/L (3.5-5.2) Chloride Level 101mEq/L (97-108) Carbon Dioxide Level 23mmol/L (18-29) Blood Urea Nitrogen 19mg/dL (6-20) Creatinine 0.59mg/dL (0.57-1.00) Estimat Glomerular Filtration Rate 168mL/min (>59) Glucose Level 94mg/dL (60-99) Calcium Level 9.4mg/dL (8.5-10.1) Magnesium Level 1.9mg/dL (1.6-2.6) Total Bilirubin 0.2mg/dL (0.0-1.2) Aspartate Amino Transf (AST/SGOT) 27U/L (0-50) Alanine Aminotransferase (ALT/SGPT) 73U/L (0-32) Alkaline Phosphatase 53U/L (25-150) Total Protein 8.4g/dL (6.4-8.4) Albumin 4.6g/dL (3.4-5.0) Lipase 38U/L (13-60) Hold Dumont Top Tube Received (Received) Hold Urine Received (Received) Urine Color Yellow (YELLOW) Urine Appearance Clear (CLEAR,HAZY) Urine pH 6.0 (5.0-8.0) Urine Specific [place] 1.020 (1.003-1.035) Urine Protein Negativemg/dL (NEG,TRACE) Urine Glucose (UA) Negativemg/dL (NEGATIVE) Urine Ketones Negativemg/dL (NEGATIVE) Urine Occult Blood Negative (NEGATIVE) Urine Nitrite Negative (NEGATIVE) Urine Bilirubin Negative (NEGATIVE) Urine Urobilinogen Normalmg/dL (NORMAL) Urine Leukocyte Esterase Negative (NEGATIVE) Urine RBC 0-2/hpf (0-2) Urine WBC 0-5/hpf (0-5) Urine Epithelial Cells Few/hpf (NONE-MOD) Urine Crystals None seen (NONE SEEN) Urine Bacteria Few/hpf (NONE-FEW) Urine Hyaline Casts None/lpf (NONE) Urine Granular Casts None seen (NONE SEEN) Urine Waxy Casts None seen (NONE SEEN) Urine Red Blood Cell Casts None seen (NONE SEEN) Urine White Blood Cell Casts None seen (NONE SEEN) Urine Mucus None seen (None Seen) Urine Trichomonas None seen (NONE SEEN) Urine Yeast None (NONE SEEN) Urinalysis Comment None Urine Culture Reflexed Not indicated Re-Eval/Medical Decision Med Decision/Clinical Course Med Decision/Clinical Course: 32-year-old female history of kidney stones presenting with left lower back pain and left lower quadrant pain. She had no other associated symptoms. Her labs are unremarkable. Her urine was negative for infection and no blood. Minimal improvement with Toradol. She had no left lower quadrant tenderness on repeat exam. She had did have some left lower back tenderness. There is no flank tenderness. She had no midline tenderness. She had no red flag symptoms. Unclear etiology. Possible musculoskeletal. Cannot rule out kidney stone though no blood in urine. There is no signs of sepsis. Discussed with patient and recommend she follow up with primary doctor tomorrow for recheck of her symptoms resolved. Return precautions given. Source of Hx: Old records Re-Evaluation/Progress : Time of Eval: 22:40 Patient Status: Condition improved Re-Evaluation/Progress Note: Pt rechecked, who is resting comfortably. The diagnosis and plan for discharge are discussed. The pt understands and agrees with the plan. All questions are addressed at this time. Counseled Regarding: Diagnosis, Lab results, Need for follow-up, When/why to return to ED Discharge & Departure Primary Impression: Low back pain Chronicity: acute Back pain laterality: left Sciatica presence: unspecified whether sciatica present Qualified Code: M54.5 - Low back pain Additional Impression: Abdominal pain Abdominal location: unspecified location Qualified Code: R10.9 - Unspecified abdominal pain Disposition: Home Discharge Condition All VS Reviewed: Yes Condition: Stable Patient Instructions: Back Pain (ED), Acute Abdominal Pain (ED) Additional Instructions: Thank you for allowing us to be part of your care. Your workup in the emergency department tonight is reassuring. You may have a kidney stone or your pain pain be in the muscle wall. Take the Flomax as scheduled. Take 1-2 Brandon every six hours as needed for severe pain. Do not drive, drink alcohol, or consume acetaminophen while taking the Brandon. Call your primary care physician to arrange a follow up appointment tomorrow for a recheck if your pain does not resolve. Return to the emergency department if you develop worsening back pain, nausea, vomiting, vaginal discharge, fever or any new or worsening symptoms. Hemant por permitirnos ser parte de chua atencin. Esta noche chua workup en el servicio de urgencias es tranquilizador. Usted puede tener edith nathalia en el ri n o el dolor de dolor en la pared muscular. Renae Flomax johnnie estaba previsto. Renae 1-2 Brandon cada seis horas segn sea necesario para el dolor georgina. No conducir, beber alcohol o consumir acetaminofn teniendo la Brandon. Llame a chua m dico de atencin primaria para concertar edith hollis maana para edith revisin de seguimiento si el dolor no se resuelve. Volver a la jaida de emergencias si se presenta empeoramiento de dolor de espalda, nuseas, vmitos, flujo vaginal, fiebre o cualquier sntoma nuevo o que empeora. Referrals: Joaquim Flores MD (PCP) Scribe Attestation Portions of this note were transcribed by Peg Landers. I, Dr. Ruth personally performed the history, physical exam and medical decision-making; I reviewed and confirmed the accuracy of the information in the transcribed note. copies to: Joaquim Flores MD, Ben M MD Mar 02, 2017 20:37 PEG LANDERS Mar 02, 2017 21:18
[2017-03-02 21:29] LABS: APPEARANCE,URINE CLEAR (CLEAR,HAZY); COLOR,URINE YELLOW (YELLOW); OCCULT BLOOD,URINE NEGATIVE (NEGATIVE); UROBILINOGEN,URINE NORMAL (NORMAL)
[2017-03-02 22:17] VITALS: BP 102/66; PULSE 69; RESP 16; O2SAT 98
[2017-03-02] MEDS ORDERED: TAMS0.4C98 PO (22:37)
[2017-03-02] MEDS ORDERED: _HYDROcodone/APAP 5-325 mg Tablet PO PRN (22:45)
== END 2017-03-02 23:12 | disposition home or self-care (01) ==
LOC: SED 19:03
DX: M54.5 Low back pain (principal); R10.9 Unspecified abdominal pain; Z86.711 Personal history of pulmonary embolism; Z79.899 Other long term (current) drug therapy; Z88.8 Allergy status to other drugs, medicaments and biological substances
CPT/HCPCS: 80053; 81000; 81025; 83690; 83735; 85025; 96372; 99284; J1885

== ENCOUNTER 2017-03-26 12:04 | Emergency (ER) | payer OTHER ==
[~2017-03-26] VITALS: Ht 147.3 cm; Wt 59.0 kg
[~2017-03-26 12:04] MED LIST changes: +TAMS0.4C98 PO
[2017-03-26 12:38] VITALS: BP 95/64; PULSE 77; RESP 16; O2SAT 100
--- NOTE | 2017-03-26 13:16 | ED.REPORT ---
HPI-Headache Date of Service Mar 26, 2017 ED Provider: Jazmin Giles History of Present Illness: headache since Thursday tried maxalat, imitrex and tylenol will not go away. kelvin is primary care. Fernando is headache specialist. poaitive nausea and vomiting. uses phenergan pills some help. . parnoid with steroids. denies head injury feels this is the worst headache of her life 05/12. States every headache she has is the worst. Nursing Notes Stated Complaint: MIGRAINE Chief Complaint: Headache Nursing Notes Reviewed: Yes Allergies: Coded Allergies: metoclopramide HCl (Verified Allergy, Severe, ANXIETY, ITCHING, SOB, ) Informed of reaction after med had been given today. Pt. anxious when she came, remains anxious, not noticably worse at this time. Offered phenergan, which she refused. iodine (Verified Allergy, Mild, RASH, 02/11/17) SINGLE EPISODE OF RASH WITH IV CONTRAST Uncoded Allergies: STERIOIDS (Allergy, Intermediate, Anxiety, 02/04/15) Scheduled Docusate Sodium (Colace) 100 Mg Capsule 100 MG PO BID Ferrous Sulfate (Feosol) 325 Mg Tablet 325 MG PO BIDWM Nadolol (Nadolol) 80 Mg Tablet 80 MG PO DAILY Omeprazole (Omeprazole) 20 Mg Tablet.dr 20 MG PO BID Vit No.124/Iron/FA ( Vitamin Tablet) 27 Mg Iron-800 Mcg Tablet 1 EACH PO DAILY Tamsulosin (Flomax) 0.4 Mg Capsule 0.4 MG PO DAILY Scheduled PRN Epinephrine (Epipen 2-Joshua) 0.3 Mg/0.3 Ml Auto.injct 0.3 MG IJ DIRECTED PRN PRN For Anaphyllaxis Ibuprofen (Ibuprofen) 800 Mg Tablet 800 MG PO Q6H PRN PRN For Pain oxyCODONE-Acetaminophen 5-325 mg (oxyCODONE-Acetaminophen 5-325 mg) 1 Each Tablet 1 TAB PO Q4H PRN PRN For Pain General Time Seen by MD: 13:15 Chief Complaint Headache Hx Obtained From: Patient Sudden in Onset?: No Location: : Temporal right Past Medical History Past Medical History Notes: Six pregnancies last CT and U/S 12/2014 A1 Blood type O+ No history of ectopic or STI. Past Medical History migraines Chronic Abdominal Pain - unclear etiology H/O H. 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, has family help 08/04/2016 no work or school 03/26/2017 Ambulatory Status Independent Review of Systems Basic Review of Systems Respiratory: No shortness of breath, No cough, No wheeze Hematologic: No bleeding, No bruising Endocrine: No cold intolerance, No heat intolerance, No weight gain, No weight loss Physical Exam Initial Vital Signs Vital Signs (First) Date Time Temp Pulse Resp B/P Pulse Ox O2 Delivery O2 Flow Rate FiO2 03/26/17 12:38 36.9 77 16 95/64 100 Room Air Initial VS: Reviewed, Vital signs normal ENT: Mucous membranes moist, Conjunctiva normal, No scleral icterus Respiratory: Breath sounds normal, Clear to auscultation, No respiratory distress Cardiovascular: Regular rate & rhythm, Heart sounds normal, Intact distal pulses Abdomen / GI: Soft, Non-tender, No guarding, No rebound, No distention Back: No CVA tenderness Lymphatic: No lymphadenopathy Extremities: Vascular intact, Neuro intact, No swelling, No tenderness Skin: Warm, Dry, No cyanosis Psychiatric: Mood/affect normal, Behavior normal, Normal thought content General/Constitutional: Awake, Alert, No acute distress, Well appearing, Well developed, Well hydrated, Well nourished, Cooperative, Not toxic appearing Head / Eyes: Atraumatic, Normocephalic, PERRL, EOMI, No nystagmus, No periorbital redness, No periorbital swelling, No photophobia, No scleral icterus , Conjunctiva NL, Cornea clear, No corneal abrasion, Sonali test negative Neck: Atraumatic, Supple, No meningismus, Full range of motion, No adenopathy, No swelling, Non-tender, No midline vertebral tend Neurologic: Oriented X3, Speech NL, No motor deficits ENT: Atraumatic, Airway patent, Mucous membranes moist, Pharynx NL Respiratory / Chest: Atraumatic, Breath sounds NL, Breath sounds = bilat, No respiratory distress Cardiovascular: Heart rate NL, Regular rhythm, Heart sounds NL, No gallop Abdomen: Atraumatic, Soft, Non-tender Interpretation & Diagnostics Lab Results Interpretation Result Diagram: 03/26/17 1350 03/26/17 1350 Test 03/26/17 13:50 White Blood Count 6.6th/mm3 (3.8-10.1) Red Blood Count 3.74mil/mm3 (3.90-5.20) Hemoglobin 12.6g/dL (12.0-15.6) Hematocrit 37.2% (35.0-46.0) Mean Corpuscular Volume 99.5fL (81-100) Mean Corpuscular Hemoglobin 33.7pg (27.0-35.0) Mean Corpuscular Hemoglobin Concent 33.9% (32.0-37.0) Red Cell Distribution Width 12.8% (12.3-15.4) Platelet Count 274bil/L (150-400) Neutrophils (%) (Auto) 54.0% (40-74) Lymphocytes (%) (Auto) 36.5% (14-46) Monocytes (%) (Auto) 9.3% (4-12) Eosinophils (%) (Auto) 0% (0-5) Basophils (%) (Auto) 0% (0-3) Sodium Level 141mEq/L (134-144) Potassium Level 3.6mEq/L (3.5-5.2) Chloride Level 103mEq/L (97-108) Carbon Dioxide Level 26mmol/L (18-29) Blood Urea Nitrogen 12mg/dL (6-20) Creatinine 0.54mg/dL (0.57-1.00) Estimat Glomerular Filtration Rate 186mL/min (>59) Glucose Level 102mg/dL (60-99) Calcium Level 9.0mg/dL (8.5-10.1) Total Bilirubin 0.4mg/dL (0.0-1.2) Aspartate Amino Transf (AST/SGOT) 21U/L (0-50) Alanine Aminotransferase (ALT/SGPT) 16U/L (0-32) Alkaline Phosphatase 45U/L (25-150) Total Protein 8.2g/dL (6.4-8.4) Albumin 4.7g/dL (3.4-5.0) Re-Eval/Medical Decision Med Decision/Clinical Course 32 year old female presents for headache management. Patient presents with similisr story after being seen last month. Patient did not get any relief from the non opiopiates and then was provided dilaulid. Advised opiates will not be provided. Patient again does not get any relief per her report. She is sleeping on entrance into the room. Encourage her to follow with headache specialist or primary care. Head CT is negative. labs are normal. With hx of 30 p[ercocet monthly, unlikely to make significant improvement in headache pain. Discharge & Departure Impression: Primary Impression: Headache Intractability: not intractable Disposition: Home Patient Instructions: Acute Headache (ED) Additional Instructions: Your labs are normal. The head CT is normal. You are not reporting any improvement in your pain, however, I woke you up on coming into the room. Please go home and sleep. sleep is the one thing that has been shown to help decrease the pain. Please follow with your headache specialist. I am sorry you are having headaches. You can use haldol 5 mg at night to help with sleep if needed. Referrals: Joaquim Flores MD (PCP) EDSupervising Provider for APC: Lan Degroot MD copies to: Joaquim Flores MD, Sue ARNP Mar 26, 2017 13:16
[2017-03-26] MEDS ORDERED: Promethazine Inj 25 MG in Dextrose 5%-Pha MIX 50 ML IV ONE (13:25)
[2017-03-26] MEDS ORDERED: Haloperidol 5 mg/mL Inj IVPUSH ONE (13:25)
[2017-03-26] MEDS ORDERED: 0.9% Sodium Chloride 1,000 ML IV ONE (13:25)
[2017-03-26 14:18] LABS: BASOPHILS % (AUTO) 0 % (0-3); EOSINOPHILS % (AUTO) 0 % (0-5); MONOCYTES % (AUTO) 9.3 % (4-12); Mean Corpuscular Hemoglobin 33.7 pg (27.0-35.0); Mean Corpuscular Volume 99.5 fL (81-100); Platelet Count 274 bil/L (150-400)
--- NOTE | 2017-03-26 14:34 | DRSVH ---
PROCEDURE: CT BRAIN WITHOUT CONTRAST ([id number]) INDICATIONS: headache TECHNIQUE: Noncontrast 4.5 mm thick angled axial sections acquired from the foramen magnum to the vertex, with c oronal reformats. COMPARISON: [facility], CT, CT BRAIN WO CON, 02/11/2017, 18:56. FINDINGS: Image quality: Diagnostic. CSF spaces: Basal cisterns are patent. No extra-axial fluid collections. Ventricles are normal in size and shape. Brain: No midline shift. No intracranial masses or hemorrhage. Degroot-white matter interface is norm al. Skull and face: Calvarium and visualized facial bones are intact, without suspicious lesions. Sinuses: Visualized sinuses and mastoids are clear. IMPRESSION: Stable head CT. No acute intracranial hemorrhage. Dictated by: David Blanton M.D. on 03/26/2017 at 13:32 Approved by: David Blanton M.D. on 03/26/2017 at 13:33
[2017-03-26 15:12] VITALS: BP_SYST 105; BP_SYST 95; BP_DIAS 64; BP_DIAS 68; PULSE 72; PULSE 77; RESP 16; O2SAT 100
== END 2017-03-26 15:15 | disposition home or self-care (01) ==
LOC: SED 12:04
DX: R51 Headache (principal); J45.909 Unspecified asthma, uncomplicated; Z87.442 Personal history of urinary calculi; Z88.8 Allergy status to other drugs, medicaments and biological substances
CPT/HCPCS: 36415; 70450; 80053; 81025; 85025; 96361; 96374; 96375; 99285; J1200; J1630; J1885; J2550; J7030